=== PATIENT | female | born 1975 | race Caucasian/White ===

== ENCOUNTER → 2019-04-22 | Outpatient (CLI) | payer OTHER | LOC: RAD 13:10 | DX: M79.671 Pain in right foot (principal) ==

== ENCOUNTER → 2019-05-18 | Outpatient (CLI) | payer OTHER | LOC: RAD 08:21 | DX: R92.2 Inconclusive mammogram (principal) ==

== ENCOUNTER → 2020-05-21 | Outpatient (CLI) | payer OTHER | LOC: BC 09:54 → EDSTATUS 13:13 | PROVIDERS: ATTEND Obstetrics & Gynecology | DX: Z12.31 Encounter for screening mammogram for malignant neoplasm of breast (principal) ==

== ENCOUNTER → 2020-08-16 | Outpatient (CLI) | payer OTHER | LOC: LAB 11:39 | PROVIDERS: ATTEND Pediatrics | DX: Z20.822 Contact with and (suspected) exposure to COVID-19 (principal) ==

== ENCOUNTER → 2020-08-20 | Outpatient (CLI) | payer OTHER | LOC: LAB 11:51 | PROVIDERS: ATTEND Pediatrics | DX: J02.9 Acute pharyngitis, unspecified (principal); R50.9 Fever, unspecified; R05 Cough; R06.02 Shortness of breath; Z20.822 Contact with and (suspected) exposure to COVID-19 ==

== ENCOUNTER → 2020-09-17 | Outpatient (CLI) | payer OTHER | LOC: LAB 08:03 | PROVIDERS: ATTEND Internal Medicine | DX: Z20.822 Contact with and (suspected) exposure to COVID-19 (principal) ==

== ENCOUNTER → 2021-06-07 | Outpatient (CLI) | payer OTHER | END | disposition home or self-care (01) | LOC: BC 11:22 | PROVIDERS: ATTEND Obstetrics & Gynecology | DX: Z12.31 Encounter for screening mammogram for malignant neoplasm of breast (principal) ==